=== PATIENT | female | born 1985 | race Caucasian/White ===

== ENCOUNTER 2018-11-22 19:55 | Emergency (ER) | payer MEDICAID ==
[~2018-11-22] VITALS: Ht 165.1 cm; Wt 117.9 kg
[2018-11-22 20:04] VITALS: BP_SYST 122
--- NOTE | 2018-11-22 20:08 | NUR ---
TPatient triaged and placed in waiting room. VSS and patient appears in no acute distress at this time. Accompanied by , awaiting available bed, and MD notified of need for MSE.
--- NOTE | 2018-11-22 21:17 | NUR ---
Patient to ER bed 1 to gown for evaluation. Side rails up. Report given to Dayanna MAYER.
--- NOTE | 2018-11-22 21:20 | NUR ---
Patient AOx4, ambulatory, presents to ER with complaint of a bump to left inner thigh x1 day. Patient states pain 10/10 to site. Patient did not medicate for pain. Heat applied to site but ineffective. No other symptoms or complaints. at bedside.
--- NOTE | 2018-11-22 21:27 | NUR ---
ER Sing at bedside for medical evaluation.
[2018-11-22] MEDS ORDERED: IBUPROFEN 600 MG TABLET PO ONE (21:45)
[2018-11-22] MEDS ORDERED: HYDROcodone/ACETAMIN 5-325 MG TAB (NORCO/ VICODIN) PO ONE (21:45)
--- NOTE | 2018-11-22 22:02 | NUR ---
No adverse reactions noted after medication administration. Will continue to monitor.
[2018-11-22 22:04] VITALS: BP_SYST 120
--- NOTE | 2018-11-22 22:04 | NUR ---
Patient given written and verbal discharge instructions and verbalizes understanding. ER MD discussed with patient the results and treatment provided. Patient in stable condition. ID arm band removed. Rx of Motrin, Bactrim DS, and [place] 5/325mg given. Patient educated on pain management and to follow up with PMD. Pain Scale 2/10 tolerable to patient. Opportunity for questions provided and answered. Medication side effect fact sheet provided.
== END 2018-11-22 22:04 | disposition home or self-care (01) ==
LOC: SED 19:55
DX: L02.416 Cutaneous abscess of left lower limb (principal); F41.9 Anxiety disorder, unspecified
CPT/HCPCS: 99283

== ENCOUNTER 2023-04-06 20:12 | Emergency (ER) | payer MEDICAID, OTHER | END 2023-04-06 21:15 | disposition left against medical advice (07) | LOC: SED 20:12 | DX: M79.601 Pain in right arm (principal); Z53.21 Procedure and treatment not carried out due to patient leaving prior to being seen by health care provider ==